=== PATIENT | male | born 1950 ===

== ENCOUNTER 2019-06-08 04:10 | Outpatient (CLI) | payer BC, MEDICARE | END 2019-06-08 23:59 | disposition home or self-care (01) | LOC: DIABETIC 04:10 | PROVIDERS: ATTEND Family Medicine | DX: E11.65 Type 2 diabetes mellitus with hyperglycemia (principal); Z79.84 Long term (current) use of oral hypoglycemic drugs; Z79.82 Long term (current) use of aspirin; Z79.899 Other long term (current) drug therapy | CPT/HCPCS: G0108 ==

== ENCOUNTER 2019-08-03 01:01 | Outpatient (CLI) | payer MEDICARE | END 2019-08-03 23:59 | disposition home or self-care (01) | LOC: DIABETIC 01:01 | PROVIDERS: ATTEND Family Medicine | DX: E11.65 Type 2 diabetes mellitus with hyperglycemia (principal); Z79.84 Long term (current) use of oral hypoglycemic drugs; Z79.82 Long term (current) use of aspirin; Z79.899 Other long term (current) drug therapy | CPT/HCPCS: G0108 ==

== ENCOUNTER 2019-10-03 00:30 | Outpatient (CLI) | payer MEDICARE | END 2019-10-03 23:59 | disposition home or self-care (01) | LOC: DIABETIC 00:30 | PROVIDERS: ATTEND Family Medicine | DX: E11.65 Type 2 diabetes mellitus with hyperglycemia (principal) | CPT/HCPCS: G0108 ==

== ENCOUNTER 2019-11-07 00:33 | Outpatient (CLI) | payer MEDICARE | END 2019-11-07 23:59 | disposition home or self-care (01) | LOC: DIABETIC 00:33 | PROVIDERS: ATTEND Family Medicine | DX: E11.65 Type 2 diabetes mellitus with hyperglycemia (principal) | CPT/HCPCS: G0108 ==